=== PATIENT | male | born 1950 | race African-American/Black ===

== ENCOUNTER 2023-06-27 17:41 | Emergency (ER) | payer MEDICARE, OTHER ==
[~2023-06-27] VITALS: Ht 175.3 cm; Wt 76.2 kg
[2023-06-27] MEDS ORDERED: ACET325C7 PO (19:53)
[2023-06-27] MEDS ORDERED: HYDROCODONE/APAP 5/325MG TABLET ONE (19:56)
[2023-06-27] MEDS ORDERED: HYDROCODONE/APAP 5/325MG TABLET PO ONE (20:00)
[2023-06-27] MEDS ORDERED: ACETAMINOPHEN 325 MG TABLET PO ONE (20:00)
[2023-06-27] MEDS ORDERED: ACETAMINOPHEN 325 MG TABLET ONE (20:03)
[2023-06-27 20:46] VITALS: BP 140/65; TEMP 98.6; O2SAT 100
[2023-06-28] MEDS ORDERED: ACET325C7 PO (15:21)
== END 2023-06-27 20:47 | disposition home or self-care (01) ==
LOC: ER 17:46
DX: Z48.00 Encounter for change or removal of nonsurgical wound dressing (principal); L97.529 Non-pressure chronic ulcer of other part of left foot with unspecified severity; Z60.2 Problems related to living alone; Z59.00 Homelessness unspecified
CPT/HCPCS: 99282; A6403

== ENCOUNTER 2023-06-28 05:34 | Emergency (ER) | payer MEDICARE, OTHER ==
[~2023-06-28] VITALS: Ht 175.3 cm; Wt 75.7 kg
[~2023-06-28 05:34] MED LIST: ACET325C7 PO
[2023-06-28 06:00] VITALS: BP 142/94; TEMP 98.7; O2SAT 97
[2023-06-28] MEDS ORDERED: ACET325C7 PO (15:21)
== END 2023-06-28 07:45 | disposition home or self-care (01) ==
LOC: ER 05:36
DX: J00 Acute nasopharyngitis [common cold] (principal); M79.673 Pain in unspecified foot; Z59.00 Homelessness unspecified; Z53.21 Procedure and treatment not carried out due to patient leaving prior to being seen by health care provider

== ENCOUNTER 2023-06-28 14:19 | Emergency (ER) | payer MEDICARE, OTHER ==
[~2023-06-28] VITALS: Ht 175.3 cm; Wt 76.2 kg
[2023-06-28 14:24] VITALS: BP 134/79; TEMP 98.4; O2SAT 100
[2023-06-28] MEDS ORDERED: ACET325C7 PO (15:21)
[2023-06-28] MEDS ORDERED: ACETAMINOPHEN 325 MG TABLET ONE (15:35)
[2023-06-28] MEDS ORDERED: ACETAMINOPHEN 325 MG TABLET PO ONE (16:00)
== END 2023-06-28 16:11 | disposition home or self-care (01) ==
LOC: ER 14:19
DX: G89.29 Other chronic pain (principal); M54.50 Low back pain, unspecified; Z60.2 Problems related to living alone; Z59.00 Homelessness unspecified